=== PATIENT | female | born 1985 | race Caucasian/White ===

== ENCOUNTER 2017-06-08 15:52 | Outpatient (CLI) | payer BC, OTHER ==
[~2017-06-08] VITALS: Ht 149.9 cm; Wt 107.9 kg
[~2017-06-08 15:52] MED LIST: IBUP-1542 PO; ONDA-43 PO; RANI300T3 PO
[2017-06-08] MEDS ORDERED: LABE200T3 PO (16:07)
[2017-06-08] MEDS ORDERED: PRENAT PO (16:08)
[2017-06-08] MEDS ORDERED: FERR325C PO (16:08)
[2017-06-08 16:09] VITALS: Ht 149.9 cm; Wt 107.9 kg
[2017-06-08 16:13] VITALS: BP 132/79; PULSE 86; RESP 18
--- NOTE | 2017-06-08 16:24 | RADRPT ---
PROCEDURE: US biophysical profile. CLINICAL INDICATION: Hypertension. TECHNIQUE: Multiple sonographic images of the uterus were obtained. The images were revi ewed on a PACS workstation. COMPARISON: No prior studies are available for comparison. FINDINGS: There is a single live intrauterine gestation. heart rate is 141 beats per minute. The position is cephalic. The placenta is anterior fundal grade II with no abruption or previa. The MEE is 15.1 cm. (Normal = 5-20 cm.) Breathing Movement: 2 Gross Body Movement: 2 Tone: 2 Qualitative Amniotic Fluid Volume: 2 TOTAL: 8 IMPRESSION: 1. The biophysical score is 8/8. RPTAT: QQ .Felice Irby MD, MD Date Time Electronically viewed and signed by .Felice Irby MD, on 06/08/2017 16:24 .R/
--- NOTE | 2017-06-08 17:12 | PN ---
Triage Information Date/Time Reason for visit: Weeks of Gestation 34w 2d /Para Hypertention: induced Objective Vital Signs Date Time Temp Pulse Resp B/P Pulse Ox O2 Delivery O2 Flow Rate FiO2 06/08/17 16:13 98.2 86 18 132/79 Heart Rate Comments reactive Contractions: None Results/Medications Imaging Results BPp 05/22, MEE 15cm Disposition: Discharge Assessment/Plan 31 y/o at 34w 2d here for NST for high BPs, no labetolol -NST reassuring, BPP/MEE normal -discharge home -continue biweekly NSTs -f/u with OB GUS KOWALSKI Jun 08, 2017 17:12
== END 2017-06-08 18:03 | disposition home or self-care (01) ==
LOC: OBT 15:52 → L-D 15:52 → OBT 18:03
PROVIDERS: ATTEND Obstetrics & Gynecology
DX: O13.3 Gestational [pregnancy-induced] hypertension without significant proteinuria, third trimester (principal); Z3A.34 34 weeks gestation of pregnancy
CPT/HCPCS: 76818; Z7500; G0463

== ENCOUNTER 2019-01-30 17:29 | Emergency (ER) | payer OTHER ==
[~2019-01-30] VITALS: Ht 149.9 cm; Wt 106.0 kg
[~2019-01-30 17:29] MED LIST changes: +FERR325C PO; -IBUP-1542 PO; +LABE200T7 PO; -ONDA-43 PO; +PRENAT PO; -RANI300T3 PO
[2019-01-30 17:30] VITALS: Ht 149.9 cm; Wt 106.0 kg
--- NOTE | 2019-01-30 19:40 | ERD ---
ER Documentation Chief Complaint Chief Complaint RT SIDE EARACHE AND SINUS PRESSURE/CONGESTION HPI 33-year-old female, presents to the emergency department, complaining of 1 week with upper respiratory symptoms that during the last 3 days have been getting worse, today the patient is complaining of persistent, sharp, right ear pain, associated with frontal headache, subjective fever and general malaise. The patient has been taking [id number] medication without improvement of the symptoms ROS All systems reviewed and are negative except as per history of present illness. Medications Home Meds Active Scripts Ibuprofen* (Motrin*) 400 Mg Tab, 400 MG PO Q8, #15 TAB Prov:CHETAN SIMPSON MD 01/30/19 Prednisone* (Prednisone*) 20 Mg Tab, 40 MG PO DAILY for 4 Days, TAB Prov:CHETAN SIMPSON MD 01/30/19 Azithromycin* (Zithromax*) 250 Mg Tablet, 250 MG PO .ZPACK DIRECTED, #6 TAB TAKE 500 MG (2 TABS) THE FIRST DAY THEN 250 MG (1 TAB) DAYS 2-5 Prov:CHETAN SIMPSON MD 01/30/19 Reported Medications Ferrous Sulfate (Iron) 325 Mg Capsule.er, 325 MG PO, CAP 06/08/17 Multivit/Min/Fol Ac/Iron/Pren* ( S*) 1 Tab Tab, 1 TAB PO DAILY, TAB 06/08/17 Labetalol Hcl (Normodyne) 200 Mg Tablet, 200 MG PO BID, TAB 06/08/17 Allergies Allergies: Coded Allergies: No Known Allergy (Unverified , 03/03/16) PMhx/Soc History of Surgery: Yes ( x2) Anesthesia Reaction: No Hx Neurological Disorder: No Hx Respiratory Disorders: No Hx Cardiac Disorders: No Hx Psychiatric Problems: No Hx Miscellaneous Medical Probl: Yes (GASTRITIS) Hx Alcohol Use: No Hx Substance Use: No Hx Tobacco Use: No Smoking Status: Never smoker FmHx Family History: No diabetes, No coronary disease Physical Exam Vitals Vital Signs Date Temp Pulse Resp B/P (MAP) Pulse Ox O2 O2 Flow FiO2 Time Delivery Rate 01/30/19 98.7 87 18 139/79 98 Room Air 19:50 (99) 01/30/19 99.7 84 17 149/83 96 17:30 (105) Physical Exam Patient alert, oriented, vital signs stable. HEENT: Normocephalic, atraumatic. EYES: PERRLA, EOMI, Sclera and conjunctiva appear normal. EARS: Right ear with significant tympanic membrane erythema, retraction and opacity with edema of the canal. Contralateral ear normal. THROAT: Erythematous oropharynx. NECK: Supple, No lymphadenopathy. Full ROM without pain or tenderness. HEART: RRR, no rubs, murmurs, clicks or gallops. LUNGS: Clear to auscultation. ABDOMEN: Soft, non-tender without masses or hepatosplenomegaly. EXTREMITIES: No edema bilaterally. BACK: Full ROM, no deformity, normal back exam NEURO: Cranial nerves grossly intact, no motor or sensory deficit Results 24 hrs Current Medications Medications Dose Sig/Alisa Start Time Status Last (Trade) Ordered Route PRN Stop Time Admin Dose Reason Admin Prednisone 40 mg ONCE ONCE 01/30/19 DC 01/30/19 (Prednisone) PO 20:00 19:48 01/30/19 20:01 Ibuprofen 600 mg ONCE ONCE 01/30/19 DC 01/30/19 (Motrin) PO 20:00 19:47 01/30/19 20:01 Procedures/MDM Vital signs stable, differential diagnosis include but not limited to: infection bacterial/viral/fungal. Tonsillitis, eustachian dysfunction, allergies, foreign body, cholesteatoma. Less likely mastoiditis, malignant otitis, meningitis. Physical examination and clinical presentation consistent most likely with right otitis media. During the ED course the patient remained stable, no new complaints. Clinical impression discussed with the patient who agrees with management. The patient is stable to be treated outpatient and will be discharged home with a Rx for antibiotics and ibuprofen. Some side effects of prescribed medications (headache, rash, nausea, vomiting, diarrhea, interactions with other medications) were reviewed. The patient was instructed to follow up with the primary care provider in the next 48h. If symptoms persist, worsen or new symptoms develop, then patient should return to the ED immediately. Disclaimer: Inadvertent spelling and grammatical errors are likely due to EHR/dictation software use and do not reflect on the overall quality of patient care. Also, please note that the electronic time recorded on this note does not necessarily reflect the actual time of the patient encounter. Departure Diagnosis: Primary Impression: Right otitis media with effusion Condition: Stable Additional Instructions: Thank you very much for allowing us to participate in your care. Your health and safety is our top priority at [facility]. Call your primary care doctor TOMORROW for an appointment during the next 2-4 days and bring all the information and medications prescribed. Have prescriptions filled and follow precisely the directions on the label. If the symptoms get worse and your provider is unavailable, return to the Emergency Department immediately. CHETAN SIMPSON MD Jan 30, 2019 19:40
[2019-01-30] MEDS ORDERED: AZIT250T PO (19:43)
[2019-01-30] MEDS ORDERED: PRED20TA PO (19:43)
[2019-01-30] MEDS ORDERED: IBUP-1561 PO (19:43)
[2019-01-30 19:50] VITALS: BP 139/79; PULSE 87; RESP 18
[2019-01-30] MEDS ORDERED: predniSONE 20 MG TAB PO ONE (20:00)
[2019-01-30] MEDS ORDERED: IBUPROFEN 600 MG TAB PO ONE (20:00)
== END 2019-01-30 19:55 | disposition home or self-care (01) ==
LOC: FTE 17:29
DX: H65.191 Other acute nonsuppurative otitis media, right ear (principal)
CPT/HCPCS: J7512; Z7502; Z7610; 99283

== ENCOUNTER 2019-08-12 15:16 | Day surgery (SDC) | payer OTHER ==
[2019-08-08 16:06] VITALS: BMI 46.5
[~2019-08-12] VITALS: Ht 152.4 cm; Wt 109.0 kg
[2019-08-12] VITALS (13 sets, daily range): BP systolic 111–137; BP diastolic 67–84; PULSE 88–92; RESP 16; Ht 152.4 cm; Wt 109.0 kg
[~2019-08-12 15:16] MED LIST changes: +AZIT250T PO; +IBUP-1561 PO; +PRED20TA PO
[2019-08-12] MEDS ORDERED: LACTATED RINGER'S 1,000 ML IV SCH (16:30)
[2019-08-12] MEDS ORDERED: MIDAZOLAM 1 MG/ML 2 ML INJ ONE (17:29)
[2019-08-12] MEDS ORDERED: MEPERIDINE 25 MG INJ IV PRN (17:30)
[2019-08-12] MEDS ORDERED: OXYCODONE/ACETAMINOPHEN (5/325) TAB PO PRN (17:30)
[2019-08-12] MEDS ORDERED: SEVOFLURANE 15 MIN ONE (17:30)
[2019-08-12] MEDS ORDERED: LABETALOL HCL 20MG INJ IV PRN (17:30)
[2019-08-12] MEDS ORDERED: HYDROmorphONE 1 MG/5 ML IV SYRINGE IV PRN ×3 (17:30)
[2019-08-12] MEDS ORDERED: hydrALAzine 20 MG INJ IV PRN (17:30)
[2019-08-12] MEDS ORDERED: EPHEDrine 25 MG/5 ML SYG IV PRN (17:30)
[2019-08-12] MEDS ORDERED: ONDANSETRON 4 MG INJ IV PRN (17:30)
[2019-08-12] MEDS ORDERED: DIPHENHYDRAMINE 50 MG INJ IV PRN (17:30)
[2019-08-12] MEDS ORDERED: FENTAnyl 50 MCG/ML VIAL IV PRN ×2 (17:30)
[2019-08-12] MEDS ORDERED: LIDOCAINE 2% (SDV) 5 ML INJ ONE (17:38)
[2019-08-12] MEDS ORDERED: SUCCINYLCHOLINE CHLORIDE 100 MG/5 ML SYG IV ONE (17:38)
[2019-08-12] MEDS ORDERED: ROCURONIUM 50 MG INJ ONE (17:38)
[2019-08-12] MEDS ORDERED: PROPOFOL 40 ML ONE (17:38)
[2019-08-12] MEDS ORDERED: ONDANSETRON 4 MG INJ ONE (17:42)
[2019-08-12] MEDS ORDERED: FAMOTIDINE 20 MG INJ ONE (17:42)
[2019-08-12] MEDS ORDERED: SUGAMMADEX SODIUM 200 MG/2 ML VIAL IV ONE (17:48)
== END 2019-08-12 19:15 | disposition home or self-care (01) ==
LOC: SDS 15:16
PROVIDERS: ATTEND Otolaryngology
DX: J35.01 Chronic tonsillitis (principal)
CPT/HCPCS: 42826; 84703; 88304; J2250; J2405; J3010; Z7512; Z7610; J1170